=== PATIENT | female | born 1960 | race Caucasian/White ===

== ENCOUNTER 2017-07-29 18:05 | Emergency (ER) | payer MEDICAID ==
[~2017-07-29] VITALS: Ht 157.5 cm; Wt 68.2 kg
[~2017-07-29 18:05] MED LIST: METO-448 PO
[2017-07-29 18:07] VITALS: Ht 157.5 cm; Wt 68.2 kg
[2017-07-30] MEDS ORDERED: LIDOCAINE/MYLANTA 40 ML BTL PO STA (01:39)
[2017-07-30] MEDS ORDERED: ASPIRIN 325 MG TAB PO STA (01:39)
--- NOTE | 2017-07-30 02:26 | RADRPT ---
PROCEDURE: CHEST - 1 VIEW CLINICAL INDICATION: 57-year-old female with chest pain. TECHNIQUE: A single frontal AP portable view of the chest was performed. The images were reviewed on a PACS workstation. COMPARISON: CR CHEST 09/17/2013 FINDINGS: The cardiomediastinal silhouette has a normal appearance. There is no evidence for an infiltrate. There is no evidence for congestive heart failure. There is no evidence for pneumothorax. The osseou s structures are intact. IMPRESSION: No evidence for active cardiopulmonary disease. .Jun Vela MD, MD Date Time Electronically viewed and signed by .Jun Vela MD, MD on 07/30/2017 02:25 .M/
[2017-07-30 02:39] LABS: BASOPHILS % 0.6 % (0.0-2.0); CREATINE KINASE 215 IU/L (23-200); EOSINOPHILS # 0.3 10^3/ul (0.0-0.5); HEMATOCRIT 40.7 % (37.0-47.0); HEMOGLOBIN 13.5 g/dl (12.0-16.0); LYMPHOCYTES # 3.4 10^3/ul (0.8-2.9); MEAN CORPUSCULAR HGB CONC 33.2 g/dl (32.0-37.0); MEAN CORPUSCULAR VOLUME 93.6 fl (82.0-101.0); MEAN PLATELET VOLUME 12.7 fl (7.4-10.4); MONOCYTE # 0.5 10^3/ul (0.3-0.9); MONOCYTES % 7.7 % (0.0-11.0); NEUTROPHIL # 2.7 10^3/ul (1.6-7.5); NEUTROPHILS % 38.4 % (39.0-77.0); PLATELET COUNT 184 10^3/UL (140-415); RED BLOOD COUNT 4.35 10^6/ul (4.20-5.40); RED CELL DISTRIBUTION WIDTH 13.2 % (11.5-14.5)
[2017-07-30 02:52] LABS: CK-MB 2.57 ng/ml (0.0-2.4)
[2017-07-30 03:00] LABS: TROPONIN-I < 0.012 ng/ml (0.00-0.12)
[2017-07-30] MEDS ORDERED: ALPRAZOLAM 0.25 MG TAB PO ONE (03:00)
[2017-07-30 04:01] LABS: CALCIUM 9.3 mg/dl (8.4-10.2); CREATININE 0.62 mg/dl (0.44-1.00); POTASSIUM 4.3 mmol/L (3.5-5.1)
[2017-07-30] MEDS ORDERED: RANI150T9 PO (04:30)
[2017-07-30 04:33] VITALS: BP 128/88; PULSE 73; RESP 17; TEMP 97.8
--- NOTE | 2017-07-30 04:36 | ERD ---
ER Documentation Chief Complaint Chief Complaint intermittent chest pain x 3 weeks HPI This 57-year-old female has substernal left-sided chest pain on and off for 3 weeks. Also has tingling and numbness in both hands sometimes. Denies shortness of breath, occasional nausea with no vomiting. Does have a primary care physician but does not have any comorbidities that she knows of. ROS All systems reviewed and are negative except as per history of present illness. Medications Home Meds Active Scripts Ranitidine Hcl* (Zantac*) 150 Mg Tablet, 150 MG PO BID, #60 TAB Prov:XAVIER DUQUE DO 07/30/17 Reported Medications Metoprolol Tartrate* (Lopressor*) 25 Mg Tab, 12.5 MG PO Q12, #60 09/17/13 Allergies Allergies: Coded Allergies: No Known Drug Allergies (Verified Allergy, Mild, 09/16/13) PMhx/Soc History of Surgery: Yes (tubal ligation 20 years ago) Anesthesia Reaction: No Hx Neurological Disorder: No Hx Respiratory Disorders: No Hx Cardiac Disorders: Yes (HTN) Hx Psychiatric Problems: No Hx Miscellaneous Medical Probl: No Hx Alcohol Use: No Hx Substance Use: No Hx Tobacco Use: No Physical Exam Vitals Vital Signs Date Time Temp Pulse Resp B/P Pulse Ox O2 Delivery O2 Flow Rate FiO2 07/30/17 02:55 78 14 142/97 98 Room Air 07/29/17 22:14 97.8 74 16 137/92 99 Room Air 07/29/17 18:07 98.1 82 18 148/96 98 Physical Exam Const: [] Distress, appears uncomfortable Head: Atraumatic Eyes: Normal Conjunctiva ENT: Normal External Ears, Nose and Mouth. Neck: Full range of motion..~ No meningismus. Resp: Clear to auscultation bilaterally Cardio: Regular rate and rhythm, no murmurs Abd: Soft, non tender, non distended. Normal bowel sounds Skin: No petechiae or rashes Back: No midline or flank tenderness Ext: No cyanosis, or edema Neur: Awake and alert oriented 3, no focal deficits. Psych: Normal Mood and Affect Result Diagram: 07/30/17 0156 07/30/17 0156 Results 24 hrs Laboratory Tests Test 07/30/17 01:56 White Blood Count 7.010^3/ul Red Blood Count 4.3510^6/ul Hemoglobin 13.5g/dl Hematocrit 40.7% Mean Corpuscular Volume 93.6fl Mean Corpuscular Hemoglobin 31.0pg Mean Corpuscular Hemoglobin Concent 33.2g/dl Red Cell Distribution Width 13.2% Platelet Count 70085^3/UL Mean Platelet Volume 12.7fl Neutrophils % 38.4% Lymphocytes % 49.0% Monocytes % 7.7% Eosinophils % 4.0% Basophils % 0.6% Nucleated Red Blood Cells % 0.0/100WBC Neutrophils # 2.710^3/ul Lymphocytes # 3.410^3/ul Monocytes # 0.510^3/ul Eosinophils # 0.310^3/ul Basophils # 0.010^3/ul Nucleated Red Blood Cells # 0.010^3/ul Sodium Level 142mmol/L Potassium Level 4.3mmol/L Chloride Level 109mmol/L Carbon Dioxide Level 22mmol/L Anion Gap 15 Blood Urea Nitrogen 17mg/dl Creatinine 0.62mg/dl Glucose Level 103mg/dl Calcium Level 9.3mg/dl Creatine Kinase 215IU/L Creatine Kinase Index 1.2 Creatinine Kinase MB (Mass) 2.57ng/ml Troponin I < 0.012ng/ml B-Type Natriuretic Peptide 70PG/ML Current Medications Medications (Trade) Dose Ordered Sig/Son Route PRN Reason Start Time Stop Time Status Last Admin Dose Admin Aspirin (Aspirin) 325 mg ONCE STAT PO 07/30/17 01:39 07/30/17 01:40 DC 07/30/17 02:04 Miscellaneous Medication (Gi Cocktail (2)) 40 ml ONCE STAT PO 07/30/17 01:39 07/30/17 01:40 DC 07/30/17 02:04 Alprazolam (Xanax) 0.5 mg ONCE ONCE PO 07/30/17 03:00 07/30/17 03:01 DC 07/30/17 02:51 Procedures/MDM Atypical chest pain in 57-year-old female. No signs of cardiac ischemia. Patient was initially given aspirin and placed on court recording monitor. She had a resurgence of her chest pain in a mild fashion which was much better than it was earlier this morning. And then gave her a GI cocktail and is Xanax is both cured or anxiety would explain long-term chest pain with anxiety explaining the bilateral hand tingling. However as soon as she took a GI cocktail within 1 minute she had complete resolution of her symptoms. Think it is more likely that this chest pain is related to GERD. I however would like her to see her primary care doctor and obtain an echocardiogram. I explained this to her. I am giving her primary care follow-up in the next 2-3 days as well as return precautions. Prescribing Zantac 150 twice daily EKG interpretation: Normal sinus rhythm rate of 81, normal axis, normal intervals. No ST or T-wave changes concerning for acute ischemia. Normal EKG monitoring and evaluation advisor interpretation: Normal sinus rhythm without arrhythmia Ches XR interpretation: I see no acute process. I see no wide mediastinum, no pneumothorax, no pulmonary edema, no fractures Departure Diagnosis: Primary Impression: GERD (gastroesophageal reflux disease) Additional Impression: Chest pain Condition: Stable Patient Instructions: Chest Pain, Uncertain Cause, Gerd (Adult) Referrals: [facility] YOU HAVE RECEIVED A MEDICAL SCREENING EXAM AND THE RESULTS INDICATE THAT YOU DO NOT HAVE A CONDITION THAT REQUIRES URGENT TREATMENT IN THE EMERGENCY DEPARTMENT. FURTHER EVALUATION AND TREATMENT OF YOUR CONDITION CAN WAIT UNTIL YOU ARE SEEN IN YOUR DOCTORS OFFICE WITHIN THE NEXT 1-2 DAYS. IT IS YOUR RESPONSIBILITY TO MAKE AN APPOINTMENT FOR [facility]. IF YOU HAVE A PRIMARY DOCTOR --you should call your primary doctor and schedule an appointment IF YOU DO NOT HAVE A PRIMARY DOCTOR YOU CAN CALL OUR PHYSICIAN REFERRAL HOTLINE AT IF YOU CAN NOT AFFORD TO SEE A PHYSICIAN YOU CAN CHOSE FROM THE FOLLOWING [facility] [address] [facility]. [facility] [address] [facility] [facility] [address] [facility]. [facility] [address] [facility]. [facility] [address] [facility]. [facility]. [address] Additional Instructions: Llame al doctor MAANA y shea estephania SUSU PARA DENTRO DE 2-3 SALINAS. Consigue estephania susu para un ECHOCARDIOGRAM. Dgale a la secretaria que nosotros le instruimos hacer esta susu.Avise o llame si bell condicin se empeora antes de la susu. Regresa aqui si peor o no mejor. XAVIER DUQUE DO Jul 30, 2017 04:36
== END 2017-07-30 04:50 | disposition home or self-care (01) ==
LOC: E/R 18:05
DX: K21.9 Gastro-esophageal reflux disease without esophagitis (principal); I10 Essential (primary) hypertension
CPT/HCPCS: 36415; 71010; 80048; 82550; 82553; 83880; 84484; 85025; Z7502; Z7610; 93005

== ENCOUNTER 2018-05-01 19:44 | Emergency (ER) | END 2018-05-01 22:12 | disposition home or self-care (01) ==

== ENCOUNTER 2018-10-02 12:10 | Observation (INO) | payer MEDICAID ==
[~2018-10-02] VITALS: Ht 157.5 cm; Wt 72.3 kg
[~2018-10-02 12:10] MED LIST changes: +ASPI-817 PO; -METO-448 PO; +RANI150T35 PO
[2018-10-02] MEDS ORDERED: SOD CHLORIDE 0.9% 1,000 ML IV STA (12:29)
[2018-10-02] MEDS ORDERED: ASPIRIN 81 MG TAB PO STA (12:29)
[2018-10-02] MEDS ORDERED: ADENOSINE 3 MG/ML SYRINGE IV ONE (12:30)
[2018-10-02] MEDS ORDERED: ADENOSINE 2 ML ONE (12:32)
--- NOTE | 2018-10-02 12:47 | ERD ---
ER Documentation Chief Complaint Chief Complaint palpitations x 40min [employer] HPI 58-year-old female with a history of SVT, last episode 5 years ago, presenting with palpitations that started 40 minutes prior to arrival with associated p ressure-like chest pain radiating to her left arm. She has associated shortness of breath. No fever, chills, nausea, vomiting, headache. 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 When she bent down and stood back up, the palpitations started. She has had this happened to her 3 times before, last episode was 5 years ago, and at that time she was hospitalized. However she is not on any rate controlling medications at this time or antiarrhythmics. She has not seen a legal arbitrator for this. She denies any recent travel or surgeries. No history of blood clots. ROS All systems reviewed and are negative except as per history of present illness. Medications Home Meds Active Scripts Ranitidine Hcl* (Zantac*) 150 Mg Tablet, 150 MG PO BID, #60 TAB Prov:XAVIER DUQUE DO 05/01/18 Reported Medications Aspirin* (Aspirin* EC) 81 Mg Tablet.dr, 81 MG PO NEEDED, TAB 05/01/18 Allergies Allergies: Coded Allergies: No Known Drug Allergies (Verified Allergy, Mild, 10/02/18) PMhx/Soc History of Surgery: No Anesthesia Reaction: No Hx Neurological Disorder: No Hx Respiratory Disorders: No Hx Cardiac Disorders: Yes (SVT) Hx Psychiatric Problems: No Hx Miscellaneous Medical Probl: No Hx Alcohol Use: No Hx Substance Use: No Hx Tobacco Use: No FmHx Family History: No diabetes Physical Exam Vitals Vital Signs Date Temp Pulse Resp B/P (MAP) Pulse Ox O2 O2 Flow FiO2 Time Delivery Rate 10/02/18 119 18 133/92 100 Room Air 2.0 13:08 (106) 10/02/18 Nasal 2 13:00 Cannula 10/02/18 97.6 188 22 99 12:14 Physical Exam Const: No acute distress, no diaphoresis Head: Atraumatic Eyes: Normal Conjunctiva ENT: Normal External Ears, Nose and Mouth. Neck: Full range of motion. No meningismus. Resp: Clear to auscultation bilaterally Cardio: Tachycardic, regular rhythm, no murmurs. 2+ distal pulses in all 4 extremities Abd: Soft, non tender, non distended. Normal bowel sounds Skin: No petechiae or rashes Back: No midline or flank tenderness Ext: No cyanosis, or edema Neur: Awake and alert, normal speech, moving all extremities Psych: Normal Mood and Affect Result Diagram: 10/02/18 1230 10/02/18 1230 Results 24 hrs Laboratory Tests Test 10/02/18 12:30 White Blood Count 10.6 10^3/ul Red Blood Count 4.51 10^6/ul Hemoglobin 13.6 g/dl Hematocrit 41.8 % Mean Corpuscular Volume 92.7 fl Mean Corpuscular Hemoglobin 30.2 pg Mean Corpuscular Hemoglobin Concent 32.5 g/dl Red Cell Distribution Width 13.6 % Platelet Count 188 10^3/UL Mean Platelet Volume 12.4 fl Immature Granulocytes % 0.300 % Neutrophils % 38.2 % Lymphocytes % 51.9 % Monocytes % 6.0 % Eosinophils % 2.8 % Basophils % 0.8 % Nucleated Red Blood Cells % 0.0 /100WBC Immature Granulocytes # 0.030 10^3/ul Neutrophils # 4.1 10^3/ul Lymphocytes # 5.5 10^3/ul Monocytes # 0.6 10^3/ul Eosinophils # 0.3 10^3/ul Basophils # 0.1 10^3/ul Nucleated Red Blood Cells # 0.0 10^3/ul Prothrombin Time 12.2 Sec Prothrombin Time Ratio 1.0 INR International Normalized Ratio 0.89 Activated Partial Thromboplast Time 32.7 Sec Sodium Level 139 mmol/L Potassium Level 3.9 mmol/L Chloride Level 107 mmol/L Carbon Dioxide Level 21 mmol/L Anion Gap 11 Blood Urea Nitrogen 17 mg/dl Creatinine 0.69 mg/dl Est Glomerular Filtrat Rate mL/min > 60 mL/min Glucose Level 137 mg/dl Calcium Level 9.4 mg/dl Magnesium Level 1.9 mg/dl Troponin I < 0.012 ng/ml Current Medications Medications Dose Sig/Son Start Time Status Last (Trade) Ordered Route PRN Stop Time Admin Dose Reason Admin Sodium 1,000 ml @ Q1H STAT 10/02/18 DC 10/02/18 Chloride 1,000 mls/hr IV 12:29 13:21 10/02/18 13:28 Aspirin 162 mg ONCE STAT 10/02/18 DC 2/19/19 (Aspirin) PO 12:29 13:19 10/02/18 12:30 Adenosine 6 mg ONCE ONCE 10/02/18 DC 10/02/18 IV 12:30 12:37 10/02/18 12:31 Adenosine 2 ml @ STK-MED 10/02/18 DC ONCE .ROUTE 12:32 10/02/18 12:33 Ondansetron 4 mg ER BRIDGE 10/02/18 HCl (Zofran PRN IV 14:30 Inj) NAUSEA/VOMITI 10/03/18 14:29 NG 650 mg ER BRIDGE 10/02/18 Acetaminophen PRN PO 14:30 (Tylenol .MILD PAIN 10/03/18 14:29 Tab) 1-3 OR TEMP Procedures/MDM EMERGENT LABS AND DIAGNOSTIC STUDIES: Lab Results above were reviewed and interpreted by me. CBC: no anemia or evidence of infection BMP: No evidence of electrolyte abnormality, renal failure, hypoglycemia Troponin within normal limits, not indicative of cardiac ischemia 12-lead EKG was interpreted by Kevin Regalado MD: SVT at 181 bpm Normal axis Normal intervals Inferior lateral ST depressions, likely due to rate Possible ischemia, no STEMI EKG (postconversion): Rate/Rhythm: Sinus tachycardia at 123 bpm with frequent PACs with aberrant conduction PVCs QRS, ST, T-waves: [No changes consistent w/ acute ischemia] Impression: Sinus tachycardia, no evidence of ischemia Radiology Results as interpreted by Radiology below were reviewed by Tracy Regalado MD: Chest x-ray: no significant abnormalities Initial Nursing notes reviewed. Previous Medical Records requested via the Electronic Health Record. EMERGENCY DEPARTMENT COURSE / MEDICAL DECISION MAKING: Patient is presenting with SVT and chest pain. Vitals were otherwise normal other than tachycardia. Her symptoms improved after chemical cardioversion. After adenosine, she went into sinus tachycardia with frequent PACs. I have a low suspicion for acute coronary syndrome or pulmonary embolism. No evidence of acute heart failure. However, I do not feel the patient is stable for discharge and will require admission for further workup and management. Critical Care Time: 35 minutes Treatments/Evaluations: Close monitoring and treatment of unstable vital signs, cardiorespiratory, and neurologic status, while maintaining tight balance of fluid, respiratory, and cardiac interventions. This time includes discussing the case with the patient and the patients family. This time does not include all procedures stated elsewhere in this record. This time also includes reviewing old records, labs and radiological studies. This time includes examining and re- examining the patient. Additionally, this time also includes arranging care with admitting and consulting physicians. Accepting Care Team: Current data and ongoing care discussed. Time: Time of admission Primary Provider: Dr Murray Outstanding Data: none Departure Diagnosis: Primary Impression: SVT (supraventricular tachycardia) Additional Impression: Chest pain Chest pain type: unspecified Qualified Codes: R07.9 - Chest pain, unspecified Condition: Serious KIMMIE REGALADO MD Oct 02, 2018 12:47
[2018-10-02] MEDS ORDERED: ONDANSETRON 4 MG INJ IV PRN ×2 (14:30→17:30)
[2018-10-02] MEDS ORDERED: ACETAMINOPHEN 325 MG TAB PO PRN (14:30)
[2018-10-02 16:30] VITALS: BP 104/76; PULSE 86; RESP 18; Ht 157.5 cm; Wt 72.3 kg
[2018-10-02 16:35] VITALS: PULSE 85
[2018-10-02] MEDS ORDERED: ZOLPIDEM 5 MG TAB PO PRN (17:30)
--- NOTE | 2018-10-02 17:34 | HP ---
Date/Time of Note Date/Time of Note DATE: 10/02/18 TIME: 17:26 Assessment/Plan VTE Prophylaxis SCD applied (from Nsg): Yes Pharmacological prophylaxis: NA/contraindicated Pharm contraindication: low risk/ambulating Lines/Catheters IV Catheter Type (from Nrsg): Saline Lock Assessment/Plan Assessment/Plan 58 yo woman history of paroxysmal SVT presents with same. #SVT - Has occurred before in 2009 and 2013. Broken with adenosine, now in normal sinus - No S/Sx of ACS or CHF. - Will consult cardiology. - Monitor overnight on tele, likely D/C in AM. DVT: SCDs GI: None Result Diagram: 10/02/18 1230 10/02/18 1230 HPI/ROS Admit Date/Time Admit Date/Time Oct 02, 2018 at 14:08 Hx of Present Illness Ms. Cruz is a pleasant 58 yo woman with no major PMH who presents with heart palpitations. 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 She stopped working and took a break. She then tried going upstairs to her bedroom to lay down but upon starting up the stairs the palpitations recurred. They didn't go away so she had her daughter drive her to the ED. She had similar symptoms in 2009 and 2013; both times presented here, found to be in SVT. In 2009 she got adenosine; in 2013 it resolved with morphine. She takes no medications regularly; occasionally takes aspirin for headache. She reports good exercise tolerance and can normally walk up several flights of stairs with no chest pressure or shortness of breath. She has no orthopnea or PND. In the ED, she presented with pulse 180s, found to be in SVT. Got adenosine push with conversion back to normal sinus. Admitted to tele. Labs unremarkable. Trop negative. ROS Denies fever, chills, weight loss, night sweats, cough, dyspnea, sore throat, nausea, vomiting, abdominal pain, diarrhea, constipation, dysuria, melena. PMH/Family/Social Past Medical History Denies Medications Current Medications Ondansetron HCl (Zofran Inj) 4 mg ER BRIDGE PRN IV NAUSEA/VOMITING; Start 10/02/18 at 14:30; Stop 10/03/18 at 14:29 Acetaminophen (Tylenol Tab) 650 mg ER BRIDGE PRN PO .MILD PAIN 1-3 OR TEMP; Sta rt 10/02/18 at 14:30; Stop 10/03/18 at 14:29 Coded Allergies: No Known Drug Allergies (Verified Allergy, Mild, 10/02/18) Past Surgical History Tuboligation Social History Lives with roommates. 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 Born in [place]. Alcohol Use: none Smoking Status: Never smoker Drug Use: none Exam/Review of Systems Vital Signs Vitals Vital Signs Date Temp Pulse Resp B/P (MAP) Pulse Ox O2 O2 Flow FiO2 Time Delivery Rate 10/02/18 97.9 86 18 104/76 100 Room Air 16:30 (85) 10/02/18 2.0 15:30 Exam Exam Gen: Well appearing woman in no acute distress. Eyes: PERRL, no icterus HEENT: Moist mucous membranes, clear oropharynx, no pharyngeal erythema Neck: No JVD. No lymphadenopathy. Card: Regular rate and rhythm, no murmurs Pulm: Clear to auscultation bilaterally. Abd: Soft, nontender, nondistended. Ext: No cyanosis, clubbing, edema Skin: warm, dry, well perfused. NEW LOPEZ MD Oct 02, 2018 17:34
[2018-10-02] MEDS: DOCUSATE SODIUM 100 MG CAP PO SCH (17:54)
[2018-10-02 20:00] VITALS: BP 142/87; PULSE 90; RESP 18
[2018-10-02] MEDS: FAMOTIDINE 20 MG TAB PO SCH (20:25)
[2018-10-02 20:29] VITALS: PULSE 95
[2018-10-02 23:46] VITALS: BP 95/56; PULSE 72; RESP 18
[2018-10-03] VITALS (7 sets, daily range): BP systolic 103–113; BP diastolic 66–80; PULSE 66–94; RESP 16–20
[2018-10-03] MEDS: DOCUSATE SODIUM 100 MG CAP PO SCH (04:52)
--- NOTE | 2018-10-03 08:09 | CONS ---
Assessment/Plan Assessment/Plan Hospital Course (Demo Recall) 1. Paroxysmal supra ventricular tachycardia: Resolved by adenosine 2. Abnormal EKG due to above 3. Palpitations due to above Recommendations: Patient has had a Lexiscan stress test done a few years ago which was normal per review of the old chart Echocardiogram will be obtained to evaluate ruling out any congenital heart disease I have given a copy of her EKG ( during the SVT) and Dr. Packer number. Patient to call his office to evaluate to be seen for SVT ablation as an outpatient. I have already contacted Dr. Packer and given him patient information including copy of the EKG. Thank you for his referral. We will continue to follow up with you as needed EARL BUENROSTRO MD [facility] Consultation Date/Type/Reason Admit Date/Time Oct 02, 2018 at 14:08 Date of Consultation: Oct 03, 2018 Type of Consult Cardiology Reason for Consultation SVT Requesting Provider: NEW LOPEZ MD Date/Time of Note DATE: 10/03/18 TIME: 08:03 Hx of Present Illness Interventional cardiology consultation note Chief complaint: palpitations Reason for consult: SVT History of present illness: Thank you for this referral. She was obtained from the patient review of the chart discussion physician staff This is a pleasant 58 yo woman with no major PMH who presents with heart palpitations. 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 She stopped working and took a break. She then tried going upstairs to her bedroom to lay down but upon starting up the stairs the palpitations recurred. They didn't go away so she had her daughter drive her to the ED. In the ED, she presented with pulse 180s, found to be in SVT. Got adenosine push with conversion back to normal sinus. She had similar symptoms in 2009 and 2013; both times presented here, found to be in SVT. In 2009 she got adenosine; in 2013 it resolved with morphine. Admitted to tele. Labs unremarkable. Trop negative. Allergies: No known drug allergies Medications At Home none Family history: No history of early coronary artery disease Social history: Non-smoker Past medical history: As above mentioned only Review of system: Patient denies all others except for above-mentioned Past Medical History Home Meds Active Scripts Ranitidine Hcl* (Zantac*) 150 Mg Tablet, 150 MG PO BID, #60 TAB Prov:XAVIER DUQUE DO 05/01/18 Reported Medications Aspirin* (Aspirin* EC) 81 Mg Tablet.dr, 81 MG PO NEEDED, TAB 05/01/18 Medications Current Medications Ondansetron HCl (Zofran Inj) 4 mg Q6H PRN IV NAUSEA/VOMITING; Start 10/02/18 at 17:30 Zolpidem Tartrate (Ambien) 5 mg QHS PRN PO .INSOMNIA; Start 10/02/18 at 17:30 Docusate Sodium (Colace) 100 mg Q12H PO Last administered on 10/03/18at 04:52; Admin Dose 100 MG; Start 10/02/18 at 17:30 Famotidine (Pepcid) 20 mg Q12 PO Last administered on 10/02/18at 20:25; Admin Dose 20 MG; Start 10/02/18 at 21:00 Aspirin (Halfprin) 81 mg DAILY PO ; Start 10/03/18 at 09:00 Enoxaparin Sodium (Lovenox) 40 mg DAILY SC ; Start 10/03/18 at 09:00 Allergies: Coded Allergies: No Known Drug Allergies (Verified Allergy, Mild, 10/02/18) Social History Alcohol Use: none Smoking Status: Never smoker Drug Use: none Exam/Review of Systems Vital Signs Vitals Vital Signs Date Temp Pulse Resp B/P (MAP) Pulse Ox O2 O2 Flow FiO2 Time Delivery Rate 10/03/18 99.2 74 16 113/80 97 Room Air 07:43 (91) 10/02/18 2.0 15:30 Intake and Output 10/02/18 10/02/18 10/03/18 1515:00 23:00 07:00 IntakeIntake Total 300 ml 500 ml BalanceBalance 300 ml 500 ml Exam Exam General: no acute distress HEENT: NC/AT. pupils are equal. round. NECK: NO JVD. no stridor. CV: RRR. systolic murmur; no gallop or rubs. PULM: no wheezing or rhonchi. GI: SOFT, NT, ND, no rebound or guarding Extremity: trace B/L LE edema. no clubbing. neuro: awake and alert, OX3. Psych: calm and pleasant rectal: deferred EKG done on September 25, [address]-T wave abnormalities. Heart rate about 178 Labs Result Diagram: 10/03/18 0457 10/03/18 0457 Results 24hrs Laboratory Tests Test 10/02/18 12:30 10/02/18 17:40 10/02/18 21:30 10/02/18 23:07 White Blood Count 10.6 # Red Blood Count 4.51 Hemoglobin 13.6 Hematocrit 41.8 Mean Corpuscular 92.7 Volume Mean Corpuscular 30.2 Hemoglobin Mean Corpuscular 32.5 Hemoglobin Concent Red Cell 13.6 Distribution Width Platelet Count 188 Mean Platelet Volume 12.4 H Immature 0.300 Granulocytes % Neutrophils % 38.2 L Lymphocytes % 51.9 H Monocytes % 6.0 Eosinophils % 2.8 Basophils % 0.8 Nucleated Red Blood 0.0 Cells % Immature 0.030 Granulocytes # Neutrophils # 4.1 Lymphocytes # 5.5 H Monocytes # 0.6 Eosinophils # 0.3 Basophils # 0.1 Nucleated Red Blood 0.0 Cells # Prothrombin Time 12.2 Prothrombin Time 1.0 Ratio INR International 0.89 Normalized Ratio Activated 32.7 Partial Thromboplast Time Sodium Level 139 Potassium Level 3.9 Chloride Level 107 Carbon Dioxide Level 21 Anion Gap 11 Blood Urea Nitrogen 17 Creatinine 0.69 Est Glomerular > 60 Filtrat Rate mL/min Glucose Level 137 Calcium Level 9.4 Magnesium Level 1.9 Troponin I < 0.012 0.060 0.056 Creatine Kinase 156 136 Creatine Kinase 1.7 1.3 Index Creatinine Kinase MB 2.58 H 1.83 (Mass) Urine Color YELLOW Urine Clarity CLEAR Urine pH 7.0 Urine Specific 1.011 [place] Urine Ketones TRACE A Urine Nitrite NEGATIVE Urine Bilirubin NEGATIVE Urine Urobilinogen NEGATIVE Urine Leukocyte TRACE A Esterase Urine Microscopic 1 RBC Urine Microscopic 2 WBC Urine Hemoglobin NEGATIVE Urine Glucose NEGATIVE Urine Total Protein NEGATIVE Test 10/03/18 04:57 White Blood Count 5.8 # Red Blood Count 4.42 Hemoglobin 13.6 Hematocrit 41.2 Mean Corpuscular 93.2 Volume Mean Corpuscular 30.8 Hemoglobin Mean Corpuscular 33.0 Hemoglobin Concent Red Cell 13.5 Distribution Width Platelet Count 174 Mean Platelet Volume 12.0 H Immature 0.200 Granulocytes % Neutrophils % 41.1 Lymphocytes % 44.8 Monocytes % 8.6 Eosinophils % 4.3 Basophils % 1.0 Nucleated Red Blood 0.0 Cells % Immature 0.010 Granulocytes # Neutrophils # 2.4 Lymphocytes # 2.6 Monocytes # 0.5 Eosinophils # 0.3 Basophils # 0.1 Nucleated Red Blood 0.0 Cells # Sodium Level 140 Potassium Level 4.1 Chloride Level 102 Carbon Dioxide Level 24 Anion Gap 14 H Blood Urea Nitrogen 18 Creatinine 0.71 Est Glomerular > 60 Filtrat Rate mL/min Glucose Level 103 Hemoglobin A1c 6.3 H Calcium Level 9.1 Magnesium Level 2.2 Thyroid Stimulating 0.510 Hormone (TSH) Medications Medications Current Medications Ondansetron HCl (Zofran Inj) 4 mg Q6H PRN IV NAUSEA/VOMITING; Start 10/02/18 at 17:30 Zolpidem Tartrate (Ambien) 5 mg QHS PRN PO .INSOMNIA; Start 10/02/18 at 17:30 Docusate Sodium (Colace) 100 mg Q12H PO Last administered on 10/03/18at 04:52; Admin Dose 100 MG; Start 10/02/18 at 17:30 Famotidine (Pepcid) 20 mg Q12 PO Last administered on 10/02/18at 20:25; Admin Dose 20 MG; Start 10/02/18 at 21:00 Aspirin (Halfprin) 81 mg DAILY PO ; Start 10/03/18 at 09:00 Enoxaparin Sodium (Lovenox) 40 mg DAILY SC ; Start 10/03/18 at 09:00 EARL BUENROSTRO MD Oct 03, 2018 08:09
[2018-10-03] MEDS: FAMOTIDINE 20 MG TAB PO SCH (08:54)
[2018-10-03] MEDS ORDERED: ASPIRIN (EC) 81 MG TAB PO SCH (09:00)
[2018-10-03] MEDS ORDERED: ENOXAPARIN 40 MG/0.4 ML SYG SC SCH (09:00)
--- NOTE | 2018-10-03 10:56 | PDOCDIS ---
Discharge Instructions DIAGNOSIS Discharge Diagnosis Paroxysmal supraventricular tachycardia CONDITION [id number] Patient Condition: Unade5t Good HOME CARE INSTRUCTIONS: [id number] Diet Instructions: [id number] Regular ACTIVITY: [id number] Activity Restrictions: [id number] No Restrictions FOLLOW UP/APPOINTMENTS Follow-up Plan 1. Make an appointment with Dr. Packer the front office developer at . He already has a copy of your EKG. 2. Return to the emergency room if you get heart palpitations or chest pain which doesn't go away after a few moments. 1. Rodney estephania latia con el Dr. Packer, el cardilogo, al . Ya tiene estephania copia de tu EKG. 2. Regrese a la castillo de emergencias si tiene palpitaciones en el corazn o dolor en el pecho que no desaparece despus de unos momentos. NEW LOPEZ MD Oct 03, 2018 10:56
--- NOTE | 2018-10-03 16:07 | DS ---
Date/Time of Note Date/Time of Note DATE: 10/03/18 TIME: 16:06 Discharge Summary Admission/Discharge Info Admit Date/Time Oct 02, 2018 at 14:08 Discharge Date/Time Oct 03, 2018 at 13:00 Discharge Diagnosis Paroxysmal supraventricular tachycardia Patient Condition: Good Hx of Present Illness Ms. Cruz is a pleasant 58 yo woman with no major PMH who presents with heart palpitations. 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 She stopped working and took a break. She then tried going upstairs to her bedroom to lay down but upon starting up the stairs the palpitations recurred. They didn't go away so she had her daughter drive her to the ED. She had similar symptoms in 2009 and 2013; both times presented here, found to be in SVT. In 2009 she got adenosine; in 2013 it resolved with morphine. She takes no medications regularly; occasionally takes aspirin for headache. She reports good exercise tolerance and can normally walk up several flights of stairs with no chest pressure or shortness of breath. She has no orthopnea or PND. In the ED, she presented with pulse 180s, found to be in SVT. Got adenosine push with conversion back to normal sinus. Admitted to tele. Labs unremarkable. Trop negative. Hospital Course The patient was monitored overnight on telemetry. There were no further cardiac events. No new medications started. She was given information for Dr. Packer to follow in clinic. Home Meds Active Scripts Ranitidine Hcl* (Zantac*) 150 Mg Tablet, 150 MG PO BID, #60 TAB Prov:XAVIER DUQUE DO 05/01/18 Reported Medications Aspirin* (Aspirin* EC) 81 Mg Tablet.dr 81 MG PO NEEDED, TAB 05/01/18 Follow-up Plan 1. Make an appointment with Dr. Packer the home appliance tech at . He already has a copy of your EKG. 2. Return to the emergency room if you get heart palpitations or chest pain which doesn't go away after a few moments. 1. Rodney estephania latia con el Dr. Packer, el cardilogo, al . Ya tiene estephania copia de tu EKG. 2. Regrese a la castillo de emergencias si tiene palpitaciones en el corazn o dolor en el pecho que no desaparece despus de unos momentos. Primary Care Provider Care Physician No Primary Time spent on discharge: > 30 minutes Pending Labs Laboratory Tests Test 10/02/18 17:40 10/02/18 21:30 10/02/18 23:07 10/03/18 04:57 Creatine 156 136 Kinase IU/L (23-200) IU/L (23-200) Creatine Kinase 1.7 1.3 Index Creatinine 2.58 1.83 Kinase MB ng/ml (0.0-2.4) ng/ml (0.0-2.4 (Mass) ) Troponin I 0.060 0.056 ng/ml (0.000-0. ng/ml (0.000-0 120) .120) Urine Color YELLOW (YELLOW ) Urine Clarity CLEAR (CLEAR) Urine pH 7.0 (5.0-9.0) Urine Specific 1.011 (1.003-1 [place] .030) Urine Ketones TRACE mg/dL (NEGATIV E) Urine Nitrite NEGATIVE mg/dL (NEGATIV E) Urine NEGATIVE Bilirubin mg/dL (NEGATIV E) Urine NEGATIVE Urobilinogen mg/dL (NEGATIV E) Urine Leukocyte TRACE Esterase Divine/ul (NEGATI VE) Urine 1 /HPF (0-5) Microscopic RBC Urine 2 /HPF (0-5) Microscopic WBC Urine NEGATIVE Hemoglobin mg/dL (NEGATIV E) Urine Glucose NEGATIVE mg/dL (NEGATIV E) Urine Total NEGATIVE Protein mg/dl (NEGATIV E) White Blood 5.8 Count 10^3/ul (4.8-1 0.8) Red Blood 4.42 Count 10^6/ul (4.20- 5.40) Hemoglobin 13.6 g/dl (12.0-16. 0) Hematocrit 41.2 % (37.0-47.0) Mean 93.2 Corpuscular fl (82.0-101.0 Volume ) Mean 30.8 Corpuscular pg (29.0-33.0) Hemoglobin Mean 33.0 Corpuscular g/dl (32.0-37. Hemoglobin Conc 0) ent Red Cell 13.5 Distribution % (11.5-14.5) Width Platelet Count 174 10^3/UL (140-4 15) Mean Platelet 12.0 Volume fl (7.4-10.4) Immature 0.200 Granulocytes % % (0.001-0.429 ) Neutrophils % 41.1 % (39.0-77.0) Lymphocytes % 44.8 % (15.0-51.0) Monocytes % 8.6 % (0.0-11.0) Eosinophils % 4.3 % (0.0-7.0) Basophils % 1.0 % (0.0-2.0) Nucleated Red 0.0 Blood Cells % /100WBC (0.0-0 .0) Immature 0.010 Granulocytes # 10^3/ul (0.0-0 .031) Neutrophils # 2.4 10^3/ul (1.6-7 .5) Lymphocytes # 2.6 10^3/ul (0.8-2 .9) Monocytes # 0.5 10^3/ul (0.3-0 .9) Eosinophils # 0.3 10^3/ul (0.0-0 .5) Basophils # 0.1 10^3/ul (0.0-0 .1) Nucleated Red 0.0 Blood Cells # 10^3/ul (0.0-0 .0) Sodium Level 140 mmol/L (135-14 4) Potassium 4.1 Level mmol/L (3.5-5. 1) Chloride Level 102 mmol/L (97-110 ) Carbon Dioxide 24 Level mmol/L (21-31) Anion Gap 14 (5-13) Blood Urea 18 Nitrogen mg/dl (7-20) Creatinine 0.71 mg/dl (0.44-1. 00) Est Glomerular > 60 Filtrat mL/min (>60) Rate mL/min Glucose Level 103 mg/dl (70-220) Hemoglobin A1c 6.3 % (0-5.9) Calcium Level 9.1 mg/dl (8.4-10. 2) Magnesium 2.2 Level mg/dl (1.7-2.5 ) Thyroid 0.510 Stimulating MIU/L (0.465-4 Hormone (TSH) .680) NEW LOPEZ MD Oct 03, 2018 16:07
--- NOTE | 2018-10-04 07:33 | RADRPT ---
Echocardiogram Report Patient Name: ANDRY ASTORGAPatient ID: [id number] : 1960 (58y 7m)Study Date: 10/03/2018 8:12:45 AM Gender: FAccession #: [id number] Tech: Maykel Bourne [facility] Location: [address] Ref.Physician: CASI AGUIRRE Height(Cm): BSA: Weight(Kg): Quality: AdequateAccount #: Procedures: Echocardiographic Report: Transthoracic echocardiogram with complete 2D, M-Mode, and doppler examination. Indications: Paroxysmal SVT. Measurements: 2D/M Mode Doppler Measurement Value Normal Range Measurement Value Normal Range LVIDd 2D 3.5 [ 3.8 - 5.2 ] cm AV Peak Narciso 1.5 [ 100.0 - 170.0 ] cm/sec LVIDs 2D 2.2 [ 2.2 - 3.5 ] cm AV Peak PG 8.0 [ 2.0 - 9.0 ] mmHg LVPWd 2D 1.1 [ 0.6 - 0.9 ] cm LVOT Peak Narciso 0.9 [ 70.0 - 110.0 ] cm/sec IVSd 2D 1.1 [ 0.6 - 0.9 ] cm LVOT Peak PG 3.0 [ 2.0 - 6.0 ] mmHg IVS/LVPW 2D 1.0 ratio MV E Peak Narciso 0.6 [ 60.0 - 130.0 ] cm/sec AoR Diam 2D 2.7 [ 2.3 - 3.1 ] cm MV A Peak Narciso 0.7 [ 100.0 - 120.0 ] cm/sec LA/Ao 2D 1 ratio MV E/A 0.9 [ 0.8 - 1.5 ] ratio LA Dimen 2D 2.8 [ 2.7 - 3.8 ] cm MV Decel Time 180 [ 104 - 258 ] msec Lat E` Narciso 0.1 [ 10.0 - 15.0 ] cm/sec Med E` Narciso 0.1 cm/sec MV E/A 0.9 [ 0.8 - 1.5 ] ratio TR Peak Narciso 2.7 [ 100.0 - 280.0 ] cm/sec TR Peak PG 29.0 mmHg RVSP 39.0 [ 10.0 - 36.0 ] mmHg Findings: Left Ventricle: Normal left ventricular systolic function. Normal left ventricular cavity size. Left ventricular wall thickness upper limits of normal. Ejection fraction is visually estimated at 65 %. Tissue Doppler/Mitral Doppler indices are consistent with impaired relaxation (Stage I diastolic dysfunction). Right Ventricle: Normal right ventricular size. Normal right ventricular systolic function. Left Atrium: The left atrium is normal in size. Right Atrium: The right atrium is normal in size. Mitral Valve: Mild mitral leaflet calcification. Mild mitral annular calcification. Trace mitral regurgitation. Aortic Valve: No significant aortic stenosis or insufficiency. Aortic cusps appear mildly calcified. Tricuspid Valve: Normal appearance of the tricuspid valve. Estimated peak PA systolic pressure 39 mmHg. There is mild tricuspid regurgitation. Pulmonic Valve: Pulmonic valve not well visualized. Pericardium: Normal pericardium with no significant pericardial effusion. Aorta: Normal aortic root. IVC: Normal size and normal respiratory collapse consistent with normal right atrial pressure. Conclusions: Normal left ventricular systolic function. Normal left ventricular cavity size. Left ventricular wall thickness upper limits of normal. Ejection fraction is visually estimated at 65 %. Tissue Doppler/Mitral Doppler indices are consistent with impaired relaxation (Stage I diastolic dysfunction). Mild mitral leaflet calcification. Mild mitral annular calcification. Trace mitral regurgitation. No significant aortic stenosis or insufficiency. Aortic cusps appear mildly calcified. Normal appearance of the tricuspid valve. Estimated peak PA systolic pressure 39 mmHg. There is mild tricuspid regurgitation. Electronically Signed By: Estrada Fagan 2018-10-04 07:32:41 PST
== END 2018-10-03 13:00 | disposition home or self-care (01) ==
LOC: E/R 12:10 → 6WM 14:08
PROVIDERS: ADMIT Family Medicine; ATTEND Family Medicine
DX: I47.1 Supraventricular tachycardia (principal); R00.2 Palpitations; R07.9 Chest pain, unspecified
CPT/HCPCS: 36415; 71045; 80048; 81001; 82550; 82553; 83036; 83735; 84443; 84484; 85025; 85610; 85730; 93005; 93306; 96374; J0153; J1650; J7030; Z7500; Z7502; Z7610; G0378

== ENCOUNTER 2019-02-11 13:28 | Emergency (ER) | payer MEDICAID ==
[~2019-02-11] VITALS: Ht 152.4 cm; Wt 67.5 kg
[2019-02-11 13:36] VITALS: Ht 152.4 cm; Wt 67.5 kg
--- NOTE | 2019-02-11 14:56 | ERD ---
ER Documentation Chief Complaint Chief Complaint chronic left cp, reproducible. emotional episode today; anxious. HPI The patient is a 58-year-old female, presenting with chronic left-sided chest pain, worse with anxiety and emotionally upset. The pain is worse after eating spicy food, she denies fever, chills, neck pain, chest pain now, pain, vomiting, dizzy, diarrhea. She does not smoke nor drink, has a lot of stress in her life at this time She was seen by her z os mainframe systems programmer about 2 months ago and told her that it might be her heartburn Medical history: Chronic chest pain Past surgical history: Tubal ligation ROS All systems reviewed and are negative except as per history of present illness. Medications Home Meds Reported Medications Aspirin* (Aspirin* EC) 81 Mg Tablet.dr, 81 MG PO NEEDED, TAB 02/11/19 Discontinued Reported Medications Aspirin* (Aspirin* EC) 81 Mg Tablet.dr, 81 MG PO NEEDED, TAB 05/01/18 Discontinued Scripts Ranitidine Hcl* (Zantac*) 150 Mg Tablet, 150 MG PO BID, #60 TAB Prov:XAVIER DUQUE DO 05/01/18 Allergies Allergies: Coded Allergies: No Known Drug Allergies (Verified Allergy, Mild, 02/11/19) PMhx/Soc History of Surgery: No Anesthesia Reaction: No Hx Neurological Disorder: No Hx Respiratory Disorders: No Hx Cardiac Disorders: Yes (Palpitation) Hx Psychiatric Problems: No Hx Miscellaneous Medical Probl: Yes Hx Alcohol Use: No Hx Substance Use: No Hx Tobacco Use: No Smoking Status: Never smoker Physical Exam Vitals Vital Signs Date Temp Pulse Resp B/P (MAP) Pulse Ox O2 O2 Flow FiO2 Time Delivery Rate 02/11/19 98.0 68 18 140/96 100 Room Air 16:56 (111) 02/11/19 98.0 63 18 115/81 100 Room Air 15:48 (92) 02/11/19 98.0 86 22 130/74 96 13:36 (92) Physical Exam Const: No acute distress. Head: Atraumatic. Eyes: Normal Conjunctiva. ENT: Normal External Ears, Nose and Mouth. Neck: Full range of motion. No meningismus. Resp: Clear to auscultation bilaterally. Cardio: Regular rate and rhythm. Abd: Soft, non distended, normal bowel sounds, non tender. Skin: No petechiae or rashes. Back: No midline or flank tenderness. Ext: No cyanosis, or edema. Neur: Awake and alert. No focal deficit Psych: Normal Mood and Affect. Result Diagram: 02/11/19 1512 02/11/19 1512 Results 24 hrs Laboratory Tests Test 02/11/19 15:12 White Blood Count 6.5 10^3/ul Red Blood Count 4.07 10^6/ul Hemoglobin 12.7 g/dl Hematocrit 38.3 % Mean Corpuscular Volume 94.1 fl Mean Corpuscular Hemoglobin 31.2 pg Mean Corpuscular Hemoglobin Concent 33.2 g/dl Red Cell Distribution Width 13.2 % Platelet Count 163 10^3/UL Mean Platelet Volume 12.4 fl Immature Granulocytes % 0.200 % Neutrophils % 39.7 % Lymphocytes % 47.6 % Monocytes % 8.2 % Eosinophils % 3.5 % Basophils % 0.8 % Nucleated Red Blood Cells % 0.0 /100WBC Immature Granulocytes # 0.010 10^3/ul Neutrophils # 2.6 10^3/ul Lymphocytes # 3.1 10^3/ul Monocytes # 0.5 10^3/ul Eosinophils # 0.2 10^3/ul Basophils # 0.1 10^3/ul Nucleated Red Blood Cells # 0.0 10^3/ul Sodium Level 141 mmol/L Potassium Level 4.2 mmol/L Chloride Level 109 mmol/L Carbon Dioxide Level 26 mmol/L Anion Gap 6 Blood Urea Nitrogen 23 mg/dl Creatinine 0.66 mg/dl Est Glomerular Filtrat Rate mL/min > 60 mL/min Glucose Level 92 mg/dl Calcium Level 8.8 mg/dl Troponin I < 0.012 ng/ml Procedures/[place] [address] Radiology Main Line: [phone] DIAGNOSTIC IMAGING REPORT Patient: ANDRY ASTORGA : 1960 Age: 58 Sex: F MR #: [id number] DOS: 02/11/19 1527 Ordering MD: MARNIE VIVAR MD Location: E/R Room/Bed: PROCEDURE: XR Chest. CLINICAL INDICATION: Chest Pain. TECHNIQUE: Portable AP view of the chest was obtained. COMPARISON: CR CHEST 09/17/2013 FINDINGS: No pulmonary consolidation or edema. No effusion or pneumothorax. Cardiac silhouette is normal. No acute osseous abnormality. Calcified atherosclerosis of the thoracic aorta. IMPRESSION: No evidence for active cardiopulmonary disease. Calcified atherosclerosis of the thoracic aorta. RPTAT:AAJJ Physician Tracee Date Time Electronically viewed and signed by Cora Ortega Physician on 02/11/2019 16:34 RF/ CC: MARNIE VIVAR MD [phone] EKG: Read by emergency physician Rate/Rhythm: Normal Sinus Rhythm 63 beats/min QRS, ST, T-waves: No ST elevation, no T inversion Impression: Normal EKG MEDICAL MAKING DECISION: The patient is a 58-year-old female, presenting with chronic chest pain, is stable for outpatient follow-up. I do not suspect acute ACS The differential diagnoses considered include but are not limited to anxiety attack, panic attack, acute distress, acute coronary syndrome, acute myocardial infarction, pericarditis, pulmonary embolism, aortic dissection, pneumonia, pleural effusion, pneumothorax, GERD, chest wall pain. Departure Diagnosis: Primary Impression: Chronic chest pain Condition: Good Comments I discussed the findings with the patient. I advised the patient to follow-up with the primary physician in about 1-2 days, sooner if needed and return if any concern. Disclaimer: Inadvertent spelling and grammatical errors are likely due to EHR/dictation software use and do not reflect on the overall quality of patient care. Also, please note that the electronic time recorded on this note does not necessarily reflect the actual time of the patient encounter. MARNIE VIVAR MD Feb 11, 2019 14:56
[2019-02-11] MEDS ORDERED: ASPI-817 PO (17:37)
[2019-02-11 18:00] VITALS: BP 141/78; PULSE 78; RESP 18
== END 2019-02-11 18:02 | disposition home or self-care (01) ==
LOC: E/R 13:28
DX: R07.9 Chest pain, unspecified (principal); G89.29 Other chronic pain; Z79.82 Long term (current) use of aspirin
CPT/HCPCS: 36415; 71045; 80048; 84484; 85025; 93005; Z7502